=== PATIENT | female | born 1940 | race Caucasian/White ===

== ENCOUNTER 2025-02-15 13:45 | Emergency (ER) | payer MEDICARE, SELFPAY ==
[2025-02-15 13:57] VITALS: BP 138/90
[2025-02-15 15:59] VITALS: BP 158/74
--- NOTE | 2025-02-15 19:12 | ED.GENMED ---
History of Present Illness
General
Chief Complaint: Fall
Source: patient and family (Daughter at bedside)
Exam Limitations: none
Time Seen by Provider: 02/15/25 16:00
Nursing documentation reviewed up to this point in time: agreed with
History of Present Illness
History of Present Illness:
Patient is an 84-year-old female with history hypertension who presents to the emergency department for evaluation of head injury following mechanical fall 2 nights prior. Patient states that she got out of bed 2 nights ago to use the bathroom and
tripped and fell striking the right side of her head on her bedside table. She feels that she may have briefly lost consciousness. However, fortunately she was able to get herself up independently and go back to sleep. She did mention this event
to her daughter, with whom she lives with, the next morning.
Patient states that since the fall she has had lingering fogginess and lightheadedness. She denies any true dizziness or spinning sensation. No significant headache. No nausea or vomiting. No visual changes or loss of balance. No neck, back
pain, or numbness/tingling in extremities. She has been ambulating without difficulty since fall
Patient is not on any oral anticoagulation.
Review of Systems
Review of Systems
Allergies reviewed?: Yes
All Other Systems: ROS reviewed and negative except as documented in HPI and ROS
Phy Exam
Physical Exam
Physical Exam:
Vitals: Mildly hypertensive, otherwise vital signs stable. Afebrile
General: Patient is well appearing, no acute distress. Nontoxic appearing
Skin: Warm and dry, no rashes or lesions
Head: Normocephalic, very minor contusion noted to right parietal scalp
Eyes: Sclera nonicteric. Pupils equal round and reactive to light bilaterally. EOMs intact. No nystagmus.
Throat: Protecting airway
Neck: Normal ROM, no cervical spine tenderness, no meningismus
Cardiac: Regular rate and rhythm, no murmurs.
Pulm: Normal respiratory effort. Lungs clear
Abdomen: No abdominal tenderness.
Extremities: No evidence of cyanosis or edema. Bilateral upper and lower extremities atraumatic and nontender with full range of motion
Neuro: AAOx3. CN II-XII grossly intact. Fluent speech and steady gait. No focal neurologic deficits.
Psychiatric: Normal affect.
Course
Orders/Labs/Results
Orders:
Orders
02/15/25 14:02
Cervical Spine wo Contrast CT [CT Cervical Spine W/o Iv Contr] Urgent
Comment:
Reason For Exam: fall
Head wo Contrast CT [CT Head W/o Iv Contrast] Urgent
Comment:
Reason For Exam: fall
Vital Signs
Initial and Last Documented VS:
Initial Vital Signs
Temp Pulse Resp BP Pulse Ox
98.4 F 65 16 138/90 100
02/15/25 13:57 02/15/25 13:57 02/15/25 13:57 02/15/25 13:57 02/15/25 13:57
Last Documented Vital Signs
Temp Pulse Resp BP Pulse Ox
98.4 F 64 19 158/74 100
02/15/25 13:57 02/15/25 15:58 02/15/25 15:58 02/15/25 15:59 02/15/25 19:13
MDM/Problems Addressed
Differential Diagnosis Includes:
Not limited to: Contusion, concussion, intracranial bleed, cervical spine fracture, orthostatic hypotension, etc
MDM/Problems Addressed:
84-year-old female presenting 2 days following mechanical fall associated with head strike now with persistent fogginess/lightheadedness. Patient tripped and fell in bedroom, striking her right head on a side table 2 nights ago. Unclear if there
was LOC at that time. Patient denies any significant headache or new neurologic symptoms, such as visual changes, gait disturbances, vomiting, or unilateral weakness. No neck pain.
Vitals and physical exam as above. Patient is alert and oriented x 3 without any focal deficits. She does have a very minor contusion to the right parietal scalp. No midline cervical tenderness. Cardio/pulmonary assessment unremarkable. No
evidence of extremity injuries on exam.
Prior to my evaluation, head CT and cervical spine CT were obtained which revealed no evidence of acute traumatic injuries. I did have a lengthy discussion with patient and her daughter regarding this persistent lightheadedness that they report.
She may be experiencing postconcussive syndrome however unable to exclude other etiologies of lightheadedness including electrolyte abnormalities, cardiac arrhythmia, hypotension, anemia, etc. Recommend an EKG and lab work however patient declines
and is aware that we could be missing underlying diagnosis. She will continue to monitor symptoms closely at home, stay well-hydrated and follow-up with primary care. Strict return precautions were discussed. Patient and patient's daughter
comfortable with plan. Patient did ambulate out of the department independently with steady gait.
Chronic conditions affecting care:
N/A
Acute Exacerbation and/or Progression of Chronic Illness:
N/A
*Radiology
Radiology exam reviewed: radiology read reviewed
*Pulse Oximetry
SaO2: 100
Oxygen Mode of Delivery: Room air
Patient hypoxic: no
*EKG
Interpreted by ED Provider?: NA
*Push Bench Operator Helper Interpretation
Rate: Push Bench Operator Helper- N/A
*Critical Care Note
Total Time (30-74mins, 75-104mins- exclusive of procedures): Not Applicable
ED Attending Note
-
Portions of this chart may have been created with voice recognition software.� Occasional wrong word or��sound alike� substitutions may have occurred due to the inherent limitations of voice recognition software.
Discharge Plan
Departure
Patient Disposition: Home (Routine Discharge)
Date of Disposition: 02/15/25
Time of Disposition: 16:41
Patient with high blood pressure during this ER visit?: Yes
Condition: Good
Discharge Problem:
Fall, Head injury
Instructions: Concussion, Adult (DC), Head Injury in Adults (DC), BLOOD PRESSURE
Prescriptions:
No Action
cephalexin 500 mg capsule
500 mg PO QID 7 Days Qty: 28 0RF
Referrals:
Devi Rodriguez CRNP [Family Provider, Internal Medicine] - Follow up in 1 week
Activity Restrictions/Additional Instructions:
RETURN TO THE EMERGENCY DEPARTMENT ANY SEVERE HEADACHE OR NECK PAIN, PERSISTENT LIGHTHEADEDNESS/DIZZINESS, ADDITIONAL FALLS, CHANGES IN MENTAL STATUS OR VISUAL CHANGES, WORSENING IN CURRENT SYMPTOMS, OR ANY OTHER CONCERNS
- As discussed the imaging of your head and cervical spine showed no acute traumatic injuries. Please continue to take Tylenol as needed for pain. Please stay well-hydrated and get plenty of rest. Move slowly from sitting to standing.
- Continue to take medications as prescribed
- Follow-up with primary care for further evaluation/management to ensure that your symptoms are improved
Monitor your symptoms closely and return to the emergency department with any acute worsening/new symptoms or any other concerns
Interventions
Interventions:
*Risk Screen - Suicide Last Done: 02/15/25 13:57
*General Assessment Last Done: 02/15/25 13:57
*Neglect/Abuse Screening Last Done: 02/15/25 13:57
*ED COVID-19 Vaccine History Last Done: 02/15/25 15:58
*ED Influenza Vaccine History Last Done: 02/15/25 15:58
[facility] Fall Risk Assessment Tool Last Done: 02/15/25 16:56
*Nursing Disposition Last Done: 02/15/25 16:57
ED-Musculoskeletal Assessment Last Done: 02/15/25 16:44
ED- Neurological Assessment Last Done: 02/15/25 15:58
Discharge Date and Time
Discharge Date/Time: 02/15/25 16:57
Print Language: CITIZEN OF [place]
== END 2025-02-15 16:57 | disposition home or self-care (01) ==
LOC: EMR 13:45
PROVIDERS: EMERGENCY PHYSICIAN Emergency Medicine; FAMILY PHYSICIAN Nurse Practitioner
DX: S09.90XA Unspecified injury of head, initial encounter (principal); W01.198A Fall on same level from slipping, tripping and stumbling with subsequent striking against other object, initial encounter; Y92.003 Bedroom of unspecified non-institutional (private) residence as the place of occurrence of the external cause; I10 Essential (primary) hypertension
CPT/HCPCS: 99284; 70450; 72125